=== PATIENT | female | born 1960 | race Caucasian/White ===

== ENCOUNTER 2018-03-15 15:34 | Emergency (ER) | payer OTHER ==
[2018-03-15] MEDS ORDERED: Adacel (T-DAP) 0.5 ML VIAL ONE (15:51)
[2018-03-15] MEDS ORDERED: Ibuprofen 800 MG TAB ONE (15:51)
[2018-03-15] MEDS ORDERED: Silver Sulfadiazine 1% Cream 50 GM JAR ONE (15:52)
== END 2018-03-15 16:15 | disposition home or self-care (01) ==
LOC: NAV ERS 15:34
DX: T23.241A Burn of second degree of multiple right fingers (nail), including thumb, initial encounter (principal); T23.151A Burn of first degree of right palm, initial encounter; E11.9 Type 2 diabetes mellitus without complications; I10 Essential (primary) hypertension; Z79.84 Long term (current) use of oral hypoglycemic drugs; Z79.899 Other long term (current) drug therapy; X15.3XXA Contact with hot saucepan or skillet, initial encounter; Y92.219 Unspecified school as the place of occurrence of the external cause; Y99.0 Civilian activity done for income or pay
CPT/HCPCS: 16020; 90471; 90715